=== PATIENT | male | born 1945 | race Caucasian/White ===

== ENCOUNTER 2018-04-18 14:50 | Inpatient (IN) | payer OTHER ==
[2018-04-18] MEDS ORDERED: IOPAMIDOL (ISOVUE 370) 100 ML BTL IV ONE (14:58)
--- NOTE | 2018-04-18 15:00 | EDPHY ---
H & P Time Seen by Provider: 04/18/18 14:50 HPI/ROS: CHIEF COMPLAINT: Altered mental status HISTORY OF PRESENT ILLNESS: History by EMS as the patient is non verbal on arrival. Apparently he fell hiking and EMS was called to the scene. According to the library media assistant he had been splinted with a possible left arm injury and was initially alert and oriented x4. EN route he became only oriented times name and the came emergent, he was trauma activation on arrival for a fall with altered mental status. Further history and review of systems unavailable as the patient is not answering questions on arrival. Says his name but no other words. PAST MEDICAL HISTORY: Unavailable on arrival Social history: Unavailable on arrival According to court bailiff or sheriff at 1500 the woman who was hiking with him was planning to drive to the hospital but isn't here yet. No phone number available to contact her. T 36.4 General Appearance: Alert and eyes open spontaneously but only says his name. Eyes: No scleral icterus. Pupils equal and reactive. ENT, Mouth: Normal mucous membranes. No tongue laceration or abrasion. Respiratory: Normal respiratory effort, breath sounds equal, lungs are clear to auscultation. Cardiovascular: Regular rate and rhythm. Gastrointestinal: Abdomen is soft and non tender. Neurological: Limited movement of left upper extremity, can't hold his left leg off the bed. Can say his name but will not answer any other questions. He will hold his right leg off the bed if asked. Has difficulty forming words. Skin: No laceration. Musculoskeletal: No lower extremity deformity or spinal deformity palpated. Good movement of the right arm, decreased motion of the left shoulder with proximal humerus tenderness. Does have a preserved radial pulse in the left wrist. No spinal tenderness. Psychiatric: Unable, not able to cooperate with exam. Emergency Department course/MDM: Patient is made a stroke alert. Trauma surgeon in room, saw the patient on arrival. 1510: Initial creatinine 1.3 and glucose normal, CT and directly to CT angiography for stroke evaluation as last known normal is unknown at this time. Suspicion for stroke given profound a facial and left-sided weakness. 1516: Negative CT and CTA per Dr. Joseph, no LVO. At this point no IV Activase as we are unable to independently verify the last time he is normal as his hiking customer operations manager is not located at this time. 1530: Further history is from Sergeant Morales that the hiking partner is Vida at [phone] and no answer at this time, she initially reported the subject lost and there was no cell phone service at the location of his fall. 1533: Patient had evaluation by [facility] and recommendation by Dr. Pimentel is no IV Activase at this time. Concern is last known normal was unknown and he has diagnosed long bone fracture upper extremity. Orthopedics consult to by admitting trauma surgeon Dr. Ramos. Downgraded to limited plus, in consultation with surgeon. 1612: Shoulder x-rays reviewed with Dr. Coleman. Vida his friend is now here in the room and she says that she last saw him normal at 10:30 a.m. This would confirm he is out of the IV Activase window if symptoms were ischemic stroke, but we also have history now from family that he has migraines and when he gets them he will become nonverbal. Admission to Trauma service with Medicine and Neurology consultations. Constitutional: Initial Vital Signs Heart Rate 65 04/18/18 14:55 Respiratory Rate 16 04/18/18 14:55 Blood Pressure 139/76 H 04/18/18 14:55 O2 Sat (%) 99 04/18/18 14:55 O2 Delivery Mode Room Air Allergies/Adverse Reactions: No Known Allergies Allergy (Unverified 04/18/18 14:53) Home Medications: Medication Instructions Recorded NK [No Known Home Meds] 04/18/18 Medical Decision Making - Diagnostics EKG Interpretation: 12-lead EKG interpreted by me; official reading is in computer system. My interpretation is sinus rhythm rate 76 with low voltage, no ischemic changes. Imaging Results: Imaging Impressions Chest X-Ray 04/18/18 14:56 Impression: 1. Fracture dislocation of the left humerus. 2. Hypoventilatory chest, with probable basilar atelectasis. Head CT 04/18/18 14:56 Impression: 1. Normal CT brain without contrast. 2. Moderate left maxillary sinusitis. 3. Recommend MRI of the brain, if there is continued clinical concern. Findings and recommendations discussed with trauma surgeon, Rachel, at 1500 hours and Emergency Department physician, Octavio Olivo at 1510 hour, 04/18/2018. Final report concurs with initial preliminary interpretation. Head CTA 04/18/18 15:01 Impression: Negative CT angiogram of the brain. Findings and recommendations discussed with Dr. Ramos at 1510 hours and Emergency Department physician, Octavio Olivo at 1515 hours, 04/18/2018. Final report concurs with initial preliminary interpretation. Neck CTA 04/18/18 15:01 Impression: 1. No evidence of carotid or vertebral flow-limiting stenosis, occlusion, dissection, or significant atherosclerotic disease. 2. Multilevel moderate to severe degenerative disk disease from C3-C4 through C6 -C7 resulting in mild to moderate central canal stenosis and bilateral neural foraminal stenosis. Consider MRI of the cervical spine if clinically indicated. 3. No acute cervical spine fracture noted. 4. Left humeral head/neck fracture. Findings and recommendations discussed with Emergency Department physician, Octavio Olivo at 1545hour, 04/18/2018. Final report concurs with initial preliminary interpretation. Measurement of carotid stenosis is based on the residual internal carotid diameter with [place] Symptomatic Carotid Endarterectomy Trial (NASCET) based stenosis levels. Shoulder X-Ray 04/18/18 15:17 Impression: Fracture dislocation of the proximal left humerus, with the articular surface of the humerus dislocated anteriorly. Imaging: Discussed imaging studies w/ system software programmer Radiologist Consult/Admit Bed Type: [place] [id number], [facility] 1545 Critical Care Time: Critical care time spent by me, Dr. Olivo, exclusively with the care of this patient was 40 minutes, exclusive of PA or GROUNDMAN time and exclusive of separate procedures. The organ system at risk was neurologic and I ordered multiple diagnostics and consultation with [facility] and are neurologist and hospitalist and trauma surgeon, to stabilize the patient and prevent worsening of the patient's condition. - Data Points Laboratory Results: Laboratory Results 04/18/18 14:52 04/18/18 14:52 04/18/18 04/18/18 04/18/18 15:00 14:59 14:59 WBC RBC Hgb POC Hgb 15.6 gm/dL gm/dL (13.7-17.5) Hct POC Hct 46 % % (40-51) MCV MCH MCHC RDW Plt Count MPV Neut % (Auto) Lymph % (Auto) [place] % (Auto) Eos % (Auto) Baso % (Auto) Nucleat RBC Rel Count Absolute Neuts (auto) Absolute Lymphs (auto) Absolute Monos (auto) Absolute Eos (auto) Absolute Basos (auto) Absolute Nucleated RBC Immature Gran % Immature Gran # PT INR APTT POC Sodium 142 mEq/L mEq/L (135-145) Sodium POC Potassium 4.0 mEq/L mEq/L (3.3-5.0) Potassium POC Chloride 106 mEq/L mEq/L (97-110) Chloride Carbon Dioxide Anion Gap POC BUN 16 mg/dL mg/dL (7-23) BUN Creatinine POC Creatinine 1.3 mg/dL mg/dL (0.7-1.3) Estimated GFR Glucose POC Glucose 97 mg/dL mg/dL (70-100) Calcium Creatine Kinase 177 IU/L IU/L (0-224) POC Troponin I 0.01 ng/mL ng/mL (0.00-0.08) 04/18/18 04/18/18 04/18/18 14:52 14:52 14:52 WBC 14.15 10^3/uL H 10^3/uL (3.80-9.50) RBC 4.80 10^6/uL 10^6/uL (4.40-6.38) Hgb 15.5 g/dL g/dL (13.7-17.5) POC Hgb Hct 44.3 % % (40.0-51.0) POC Hct MCV 92.3 fL fL (81.5-99.8) MCH 32.3 pg pg (27.9-34.1) MCHC 35.0 g/dL g/dL (32.4-36.7) RDW 12.1 % % (11.5-15.2) Plt Count 153 10^3/uL 10^3/uL (150-400) MPV 9.5 fL fL (8.7-11.7) Neut % (Auto) 83.5 % H % (39.3-74.2) Lymph % (Auto) 8.4 % L % (15.0-45.0) [place] % (Auto) 6.6 % % (4.5-13.0) Eos % (Auto) 0.8 % % (0.6-7.6) Baso % (Auto) 0.3 % % (0.3-1.7) Nucleat RBC Rel Count 0.0 % % (0.0-0.2) Absolute Neuts (auto) 11.82 10^3/uL H 10^3/uL (1.70-6.50) Absolute Lymphs (auto) 1.19 10^3/uL 10^3/uL (1.00-3.00) Absolute Monos (auto) 0.94 10^3/uL H 10^3/uL (0.30-0.80) Absolute Eos (auto) 0.11 10^3/uL 10^3/uL (0.03-0.40) Absolute Basos (auto) 0.04 10^3/uL 10^3/uL (0.02-0.10) Absolute Nucleated RBC 0.00 10^3/uL 10^3/uL (0-0.01) Immature Gran % 0.4 % % (0.0-1.1) Immature Gran # 0.05 10^3/uL 10^3/uL (0.00-0.10) PT 13.5 SEC SEC (12.0-15.0) INR 1.01 (0.83-1.16) APTT 26.6 SEC SEC (23.0-38.0) POC Sodium Sodium 139 mEq/L mEq/L (135-145) POC Potassium Potassium 4.2 mEq/L mEq/L (3.3-5.0) POC Chloride Chloride 106 mEq/L mEq/L (97-110) Carbon Dioxide 24 mEq/l mEq/l (22-31) Anion Gap 9 mEq/L mEq/L (8-16) POC BUN BUN 18 mg/dL mg/dL (7-23) Creatinine 1.3 mg/dL mg/dL (0.7-1.3) POC Creatinine Estimated GFR 54 Glucose 95 mg/dL mg/dL (70-100) POC Glucose Calcium 9.4 mg/dL mg/dL (8.5-10.4) Creatine Kinase POC Troponin I Medications Given: Aspirin (Aspirin Rectal) 300 mg MN DAILY ASHUTOSH Stop: 10/15/18 18:14 Last Admin: 04/18/18 18:32 Dose: 300 mg Hydromorphone HCl (Dilaudid) 0.2 - 0.4 mg IVP Q4HRS PRN PRN Reason: Pain, Severe Unable to Take PO Stop: 04/28/18 19:20 Last Admin: 04/18/18 19:48 Dose: 0.4 mg Point of Care Test Results: Chemistry 04/18/18 04/18/18 14:59 14:59 POC Sodium 142 mEq/L mEq/L (135-145) POC Potassium 4.0 mEq/L mEq/L (3.3-5.0) POC Chloride 106 mEq/L mEq/L (97-110) POC BUN 16 mg/dL mg/dL (7-23) POC Creatinine 1.3 mg/dL mg/dL (0.7-1.3) POC Glucose 97 mg/dL mg/dL (70-100) POC Troponin I 0.01 ng/mL ng/mL (0.00-0.08) ISTAT H&H 04/18/18 14:59 POC Hgb 15.6 gm/dL gm/dL (13.7-17.5) POC Hct 46 % % (40-51) Departure - Departure Disposition: [facility] Inpatient Acute Clinical Impression: Aphasia, fracture dislocation humerus left Fracture of humeral head, left, closed Qualifiers: Encounter type: initial encounter Qualified Code(s): S42.292A - Other displaced fracture of upper end of left humerus, initial encounter for closed fracture Condition: Serious
[2018-04-18 15:08] LABS: PLATELET COUNT 153 10^3/uL (150-400)
[2018-04-18 15:15] LABS: INR 1.01 (0.83-1.16); PROTIME(PATIENT) 13.5 SEC (12.0-15.0)
[2018-04-18] MEDS ORDERED: NALOXONE HCL 0.4 MG/ML INJ IVP PRN (15:33)
--- NOTE | 2018-04-18 15:34 | CPEKG ---
Test Reason : OPEN Blood Pressure : / mmHG Vent. Rate : 076 BPM Atrial Rate : 076 BPM P-R Int : 149 ms QRS Dur : 073 ms QT Int : 371 ms P-R-T Axes : 043 002 053 degrees QTc Int : 418 ms Sinus rhythm Low voltage, precordial leads Confirmed by Octavio Olivo ([id number]) on 04/18/2018 3:34:04 PM Referred By: Confirmed By:Octavio Olivo
--- NOTE | 2018-04-18 15:40 | PDGENHP ---
History and Physical - Chief Complaint fall, L arm pain, aphasia - History of Present Illness 73yo M who was brought in by ambulance after sustaining a fall. Per report, the patient was hiking with a efficiency miner when he fell abruptly. The efficiency miner attempted to find help but ended up getting lost but was eventually able to contact EMS. On their arrival, the patient was c/o L arm pain and the extremity was successfully splinted. [facility] arrived for transport and upon their arrival, the patient began to be less conversive going from holding a normal conversation to being able to tell his name only and slightly neglecting his L side. In addition, the patient was incontinent of both urine and stool. On arrival here, he is able to tell me his name but is otherwise aphasic and non- communicative. He is protecting his airway and breathing appropriately, he has normal pulses in the carotid and peripheral distributions. History Information - Allergies/Home Medication List Allergies/Adverse Reactions: No Known Allergies Allergy (Unverified 04/18/18 14:53) Home Medications: NK [No Known Home Meds] 04/18/18 [Last Taken Unknown] I have personally reviewed and updated: medical history, social history, surgical history Past Medical History: unobtainable - Surgical History Additional surgical history: has large sternonoty scar, no other scars apparent. - Family History Additional family history: unobtainable. - Social History Smoking Status: Unknown if ever smoked Alcohol Use: Other (unobtainable) Drug Use: Other (unobtainable) Review of Systems Review of Systems: unobtainable Physical Exam Physical Exam: Temp Pulse Resp BP Pulse Ox 65 16 132/68 H 99 04/18/18 14:55 04/18/18 14:55 04/18/18 15:02 04/18/18 14:55 Constitutional: no apparent distress, uncomfortable Eyes: PERRL, EOMI (neglecting L side, will look to painful stimuli), No icteric sclera, No scleral injection Ears, Nose, Mouth, Throat: moist mucous membranes, hearing normal, ears appear normal, no oral mucosal ulcers, No oral ulcer Cardiovascular: regular rate and rhythym, no murmur, rub, or gallop Peripheral Pulses: 2+: carotid (R), carotid (L), femoral (R), femoral (L), dorsalis-pedis (R), dorsalis-pedis (L) Respiratory: no respiratory distress, no rales or rhonchi Gastrointestinal: normoactive bowel sounds, soft, non-tender abdomen, no palpable masses Skin: warm, normal color, no rashes or abrasions Musculoskeletal: full muscle strength, normal joint ROM (with exception to LUE which is painful and grinds to movement ) Neurologic: other (largely aphasic, able to tell name), No facial droop Psychiatric: No interacting appropriately Lymph, Heme, Immunologic: no cervical LAD, no supraclavicular LAD Lab Data & Imaging Review 04/18/18 14:52 04/18/18 14:52 WBC 14.15 10^3/uL (3.80-9.50) H 04/18/18 14:52 RBC 4.80 10^6/uL (4.40-6.38) 04/18/18 14:52 Hgb 15.5 g/dL (13.7-17.5) 04/18/18 14:52 POC Hgb 15.6 gm/dL (13.7-17.5) 04/18/18 14:59 Hct 44.3 % (40.0-51.0) 04/18/18 14:52 POC Hct 46 % (40-51) 04/18/18 14:59 MCV 92.3 fL (81.5-99.8) 04/18/18 14:52 MCH 32.3 pg (27.9-34.1) 04/18/18 14:52 MCHC 35.0 g/dL (32.4-36.7) 04/18/18 14:52 RDW 12.1 % (11.5-15.2) 04/18/18 14:52 Plt Count 153 10^3/uL (150-400) 04/18/18 14:52 MPV 9.5 fL (8.7-11.7) 04/18/18 14:52 Neut % (Auto) 83.5 % (39.3-74.2) H 04/18/18 14:52 Lymph % (Auto) 8.4 % (15.0-45.0) L 04/18/18 14:52 [place]y % (Auto) 6.6 % (4.5-13.0) 04/18/18 14:52 Eos % (Auto) 0.8 % (0.6-7.6) 04/18/18 14:52 Baso % (Auto) 0.3 % (0.3-1.7) 04/18/18 14:52 Nucleat RBC Rel Count 0.0 % (0.0-0.2) 04/18/18 14:52 Absolute Neuts (auto) 11.82 10^3/uL (1.70-6.50) H 04/18/18 14:52 Absolute Lymphs (auto) 1.19 10^3/uL (1.00-3.00) 04/18/18 14:52 Absolute Monos (auto) 0.94 10^3/uL (0.30-0.80) H 04/18/18 14:52 Absolute Eos (auto) 0.11 10^3/uL (0.03-0.40) 04/18/18 14:52 Absolute Basos (auto) 0.04 10^3/uL (0.02-0.10) 04/18/18 14:52 Absolute Nucleated RBC 0.00 10^3/uL (0-0.01) 04/18/18 14:52 Immature Gran % 0.4 % (0.0-1.1) 04/18/18 14:52 Immature Gran # 0.05 10^3/uL (0.00-0.10) 04/18/18 14:52 PT 13.5 SEC (12.0-15.0) 04/18/18 14:52 INR 1.01 (0.83-1.16) 04/18/18 14:52 APTT 26.6 SEC (23.0-38.0) 04/18/18 14:52 POC Sodium 142 mEq/L (135-145) 04/18/18 14:59 Sodium 139 mEq/L (135-145) 04/18/18 14:52 POC Potassium 4.0 mEq/L (3.3-5.0) 04/18/18 14:59 Potassium 4.2 mEq/L (3.3-5.0) 04/18/18 14:52 POC Chloride 106 mEq/L (97-110) 04/18/18 14:59 Chloride 106 mEq/L (97-110) 04/18/18 14:52 Carbon Dioxide 24 mEq/l (22-31) 04/18/18 14:52 Anion Gap 9 mEq/L (8-16) 04/18/18 14:52 POC BUN 16 mg/dL (7-23) 04/18/18 14:59 BUN 18 mg/dL (7-23) 04/18/18 14:52 Creatinine 1.3 mg/dL (0.7-1.3) 04/18/18 14:52 POC Creatinine 1.3 mg/dL (0.7-1.3) 04/18/18 14:59 Estimated GFR 54 04/18/18 14:52 Glucose 95 mg/dL (70-100) 04/18/18 14:52 POC Glucose 97 mg/dL (70-100) 04/18/18 14:59 Calcium 9.4 mg/dL (8.5-10.4) 04/18/18 14:52 POC Troponin I 0.01 ng/mL (0.00-0.08) 04/18/18 14:59 Visualized and Interpreted imaging results: Yes Interpretation: CT Head: no acute trauma. CTA Head: no bleed. CTA Neck: no abnormalities Assessment & Plan Assessment: 73yo M s/p fall, aphasic likely 2/2 CVA Plan: Given the unknown nature of the patients injuries will admit him to the trauma service given his LUE fracture. Neurology has been contacted and given the unknown nature of when he fell as well as his long bone Fx tPA has been advocated against. Will have medicine, neurology and orthopedics consultations.
[2018-04-18 15:52] LABS: CREATINE KINASE 177 IU/L (0-224)
--- NOTE | 2018-04-18 17:03 | GCON ---
DATE OF CONSULTATION: 04/18/2018 CHIEF COMPLAINT: Left proximal humeral fracture dislocation. HISTORY OF PRESENT ILLNESS: This 73-year-old male was brought by ambulance after sustaining a fall. Per the report, he was hiking with a director clinical operations when he fell abruptly. The director clinical operations was unable to g et him off the ground. EMS was called. On arrival, he complained of left arm pain, but was otherwis e aphasic and noncommunicative. His director clinical operations was unable to provide much history. PAST MEDICAL HISTORY: Not known. HOME MEDICATIONS: Not known. ALLERGIES: No known drug allergies. PAST SURGICAL HISTORY: He has a significant scar on his chest. FAMILY HISTORY: Unobtainable. SOCIAL HISTORY: Not known. REVIEW OF SYSTEMS: Unobtainable. PHYSICAL EXAM: GENERAL: He does not appear in any acute distress. He is unable to answer questions , other than with yes or no. His eyes do track, and they are reactive. His face appears atraumatic. NECK: Supple. ENT: His mouth shows moist mucous membranes. He has 2+ peripheral pulses. RESPIR ATORY: Good respiratory effort. GI: Soft. EXTREMITIES: His left upper extremity has swelling abo ut the shoulder. This is tender. Any attempt with range of motion, this is painful. His elbow is r eally nontender to palpation. I can range his elbow without pain. His wrist and hand are nontender. He has difficulty moving his left upper extremity in any capacity. The right upper extremity, he i s able to lift this and squeeze. He does not appear to have any tenderness. He has good range of mo tion. This appears atraumatic. His legs, he is able to move his right leg pretty well with good str ength and no areas of concern for crepitus or tenderness with palpation. Good range of motion. His left lower extremity is weak, but he is able to move it. He has a hard time lifting against resistan ce or dorsiflexing or plantar flexing his foot, or extending his knee. I am unable to get a sensory exam. RADIOGRAPHS: Radiographs of his shoulder reveal a fracture dislocation, with complete dislocation of the humeral head and some comminution of his left proximal humerus. PLAN: He is being admitted to the hospital by the trauma service with consultations from Medicine an d Neurology. He will need to be worked up further for a stroke and treated for this. Once he is mor e stable medically, he will require a left shoulder hemiarthroplasty given the severity of the fractu re and the loss of blood supply to the head. When he is more medically stable, we will make surgical arrangements for this. /[id number]/MODL
--- NOTE | 2018-04-18 17:28 | GCON ---
NEUROLOGY CONSULT REFERRING PHYSICIAN: Octavio Olivo MD CHIEF COMPLAINT: Aphasia. HISTORY OF PRESENT ILLNESS: The patient is a very pleasant 73-year-old gentleman whom we obtained collateral history from Nursing, who spoke to his sibling. Apparently, he has a longstanding history of migraines in which he appears like he is having "a stroke and can't talk." In any case, the patient was hiking with a friend today and apparently fell resulting in a break of his left upper extremity in the proximal left humerus. The patient had a head CT which was unremarkable. He had angio of the head and neck without any acute intravascular thrombosis or dissection. When he was evaluated in the ED, he was noted to have aphasia. Therefore, a Stroke Alert was called and he was seen by Telemedicine, who did not recommend tPA. Admission for further workup was initiated and Trauma and Orthopedics apparently have evaluated him. REVIEW OF SYSTEMS: Cannot be performed due to the patient's aphasia. For past medical history, social history, family history, allergies, home medications, please see Dr. Ramos's H and P. PHYSICAL EXAM: VITAL SIGNS: Blood pressure is 130/91, respiration 16, heart rate is 82, temperature 36.9. GENERALLY: Patient is awake and alert. He is pleasant and laughing intermittently at jokes. HIGHER MENTAL FUNCTION: The patient can follow commands 4 out of 5, but has significant expressive aphasia and is unable to name 0 out of 5 currently. On motor exam he has equal core cutter and reamer strength, but decreased spontaneous movement in the left upper extremity due to the fracture apparently. Lower extremities have full movement as well. No obvious focal weakness outside of decrease activation secondary to pain in the left upper extremity. IMPRESSION/PLAN: 1. Aphasia (expressive greater than receptive) 2. Status post fall with left humerus fracture. Apparently, this patient has a longstanding history of migraine headaches that may be hemiplegic or aphasic based on collateral history obtained through the emergency department nursing from his sibling. Hopefully this is the case rather than a stroke. Going forward, Pharmacy will be looking into his home medications. Specifically, we want to know if he is on any oral anticoagulation. If not, then I would recommend rectal aspirin if okay with Surgery/Trauma. Once he can take p.o., we can switch him to oral aspirin 325 mg daily. He will need Physical Therapy, Occupational Therapy and Speech evaluations. I have ordered an MRI brain without contrast to assess for any acute infarct. This can be done when he is less agitated, either today or tomorrow, so he can stay still for the study. Otherwise, no further recommendations now. We will follow up on the imaging results and make recommendations accordingly. We appreciate the consultation. Please do not hesitate to call if there are any questions or changes in neurologic status with this very pleasant patient. Seventy total minutes floor time today in reviewing records, imaging, labs, and coordination of care. /[id number]/MODL MTDD
--- NOTE | 2018-04-18 17:43 | PDHOSCONS ---
History and Physical - Chief Complaint fall, aphasia - History of Present Illness 73yo M who was brought in by ambulance after sustaining a fall. Per report, the patient was hiking with a lumber mover when he fell abruptly. The lumber mover attempted to find help but ended up getting lost but was eventually able to contact EMS. On their arrival, the patient was c/o L arm pain and the extremity was successfully splinted. [facility] arrived for transport and upon their arrival, the patient began to be less conversive going from holding a normal conversation to being able to tell his name only and slightly neglecting his L side. In addition, the patient was incontinent of both urine and stool. Imaging to include CTA Brain, Neck, and CT brain are unremarkable He continues to be incontinent to urine and stool ROS: unable to obtain Past Medical History: unobtainable - Surgical History unobtainable - Family History Additional family history: unobtainable. Soc Hx: unobtainable History Information - Allergies/Home Medication List Allergies/Adverse Reactions: No Known Allergies Allergy (Unverified 04/18/18 14:53) Home Medications: NK [No Known Home Meds] 04/18/18 [Last Taken Unknown] I have personally reviewed and updated: family history Past Medical History: unobtainable - Surgical History Additional surgical history: has large sternonoty scar, no other scars apparent. - Family History Additional family history: unobtainable. - Social History Smoking Status: Unknown if ever smoked Alcohol Use: Other (unobtainable) Drug Use: Other (unobtainable) Review of Systems Review of Systems: Physical Exam Physical Exam: Temp Pulse Resp BP Pulse Ox 36.9 C 75 20 140/68 H 94 04/18/18 16:51 04/18/18 16:51 04/18/18 16:51 04/18/18 16:51 04/18/18 16:51 Constitutional: no apparent distress Eyes: PERRL Ears, Nose, Mouth, Throat: moist mucous membranes Cardiovascular: regular rate and rhythym, No edema Respiratory: no respiratory distress, no rales or rhonchi, clear to auscultation Gastrointestinal: normoactive bowel sounds, No guarding, No rebound, No distension Skin: warm Neurologic: No AAOx3, No facial droop Psychiatric: encephalopathic, No interacting appropriately Lymph, Heme, Immunologic: No petechiae Lab Data & Imaging Review 04/18/18 14:52 04/18/18 14:52 WBC 14.15 10^3/uL (3.80-9.50) H 04/18/18 14:52 RBC 4.80 10^6/uL (4.40-6.38) 04/18/18 14:52 Hgb 15.5 g/dL (13.7-17.5) 04/18/18 14:52 POC Hgb 15.6 gm/dL (13.7-17.5) 04/18/18 14:59 Hct 44.3 % (40.0-51.0) 04/18/18 14:52 POC Hct 46 % (40-51) 04/18/18 14:59 MCV 92.3 fL (81.5-99.8) 04/18/18 14:52 MCH 32.3 pg (27.9-34.1) 04/18/18 14:52 MCHC 35.0 g/dL (32.4-36.7) 04/18/18 14:52 RDW 12.1 % (11.5-15.2) 04/18/18 14:52 Plt Count 153 10^3/uL (150-400) 04/18/18 14:52 MPV 9.5 fL (8.7-11.7) 04/18/18 14:52 Neut % (Auto) 83.5 % (39.3-74.2) H 04/18/18 14:52 Lymph % (Auto) 8.4 % (15.0-45.0) L 04/18/18 14:52 [place] % (Auto) 6.6 % (4.5-13.0) 04/18/18 14:52 Eos % (Auto) 0.8 % (0.6-7.6) 04/18/18 14:52 Baso % (Auto) 0.3 % (0.3-1.7) 04/18/18 14:52 Nucleat RBC Rel Count 0.0 % (0.0-0.2) 04/18/18 14:52 Absolute Neuts (auto) 11.82 10^3/uL (1.70-6.50) H 04/18/18 14:52 Absolute Lymphs (auto) 1.19 10^3/uL (1.00-3.00) 04/18/18 14:52 Absolute Monos (auto) 0.94 10^3/uL (0.30-0.80) H 04/18/18 14:52 Absolute Eos (auto) 0.11 10^3/uL (0.03-0.40) 04/18/18 14:52 Absolute Basos (auto) 0.04 10^3/uL (0.02-0.10) 04/18/18 14:52 Absolute Nucleated RBC 0.00 10^3/uL (0-0.01) 04/18/18 14:52 Immature Gran % 0.4 % (0.0-1.1) 04/18/18 14:52 Immature Gran # 0.05 10^3/uL (0.00-0.10) 04/18/18 14:52 PT 13.5 SEC (12.0-15.0) 04/18/18 14:52 INR 1.01 (0.83-1.16) 04/18/18 14:52 APTT 26.6 SEC (23.0-38.0) 04/18/18 14:52 POC Sodium 142 mEq/L (135-145) 04/18/18 14:59 Sodium 139 mEq/L (135-145) 04/18/18 14:52 POC Potassium 4.0 mEq/L (3.3-5.0) 04/18/18 14:59 Potassium 4.2 mEq/L (3.3-5.0) 04/18/18 14:52 POC Chloride 106 mEq/L (97-110) 04/18/18 14:59 Chloride 106 mEq/L (97-110) 04/18/18 14:52 Carbon Dioxide 24 mEq/l (22-31) 04/18/18 14:52 Anion Gap 9 mEq/L (8-16) 04/18/18 14:52 POC BUN 16 mg/dL (7-23) 04/18/18 14:59 BUN 18 mg/dL (7-23) 04/18/18 14:52 Creatinine 1.3 mg/dL (0.7-1.3) 04/18/18 14:52 POC Creatinine 1.3 mg/dL (0.7-1.3) 04/18/18 14:59 Estimated GFR 54 09/07/18 14:52 Glucose 95 mg/dL (70-100) 04/18/18 14:52 POC Glucose 97 mg/dL (70-100) 04/18/18 14:59 Calcium 9.4 mg/dL (8.5-10.4) 04/18/18 14:52 Creatine Kinase 177 IU/L (0-224) 04/18/18 15:00 POC Troponin I 0.01 ng/mL (0.00-0.08) 04/18/18 14:59 Assessment & Plan Assessment: #Aphasia (Acute) -Likely due to CVA -Neuro following -Need for Aspirin vs other agent per Neuro -MRI in am. -check risk factors -Tele -TTE -NPO -speech/pt/ot -permissive HTN #Fracture of humeral head, left, closed (Acute) -mgmt per ortho #Leukocytosis, likely reactive #s/p fall/ trauma, possible syncope -check tte, telemetry Mgmt per above no known chronic medical problems no known chronic meds further reccs pending w/u and clinical course Thank you for this consultation
[2018-04-18] MEDS: ASPIRIN RECTAL 300 MG SUPP PR SCH (18:32)
[2018-04-18] MEDS: HYDROmorphONE/DILAUDID 1 MG/ML INJ IVP PRN (19:48)
[2018-04-19] MEDS: HYDROmorphONE/DILAUDID 1 MG/ML INJ IVP PRN ×2 (01:09→11:37)
--- NOTE | 2018-04-19 09:13 | TRAUMAPNT ---
Trauma Tertiary Progress Note Assessment/Plan: urinary retention overnight. some confusion last fernando - improved throughout am. straight cath for urine retention. currently without complaints. denies [place]. denies visual changes. remembers fall while hiking. no cp or sob. no abd c/o. left arm pain controlled. avss. alert to name, place, situation. PERRLA. EOMI. neck nontender. heart reg. lungs clear. abd nontender. LUE sling in place. MAEW. fall / syncope / ?migraine. Humerus fx. urine retention. apprec IM/neuro assessments. for MRI today. no other acute trauma issues identified. Trauma to sign off - d/w hospitalist service. call with further questions. Objective: Vital Signs Temp Pulse Resp BP Pulse Ox 36.8 C 80 18 101/59 L 97 04/19/18 07:40 04/19/18 07:40 04/19/18 07:40 04/19/18 07:40 04/19/18 07:40 04/18/18 04/19/18 04/20/18 05:59 05:59 05:59 Intake Total 120 Output Total 400 Balance -280 PT 13.5 SEC (12.0-15.0) 04/18/18 14:52 INR 1.01 (0.83-1.16) 04/18/18 14:52
--- NOTE | 2018-04-19 09:49 | ASMTCMCOM ---
CM Note CM Note Notes: Pt admitted to hospital after a fall while hiking. He was with a friend when fell suddenly. 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 Per H&P, pt lives alone but independent in ADLs, has a brother and a son. PT/OT ordered, CM w/f and assess for dc plan. DC Plan: TBD Date Signed: 04/19/2018 09:48 AM Electronically Signed By:Jayleen Candelario RN
--- NOTE | 2018-04-19 10:20 | SOAPPROG ---
[facility] Progress Note Assessment/Plan: Assessment: Left proximal humerus 4 part fx dislocation axillary nerve palsy Plan: plan for OR tomorrow with Dr. Dunn for ORIF versus reverse total shoulder able to get exam today no sensory or motor function of axillary nerve present decreased sensation in hand in radial, ulnar and median distributions, likely secondary to CVA full 5/5 strength in medial/ulnar and radial distribution in left arm and hand, 4/5 elbow flexion non wt bearing LUE may mobilize 04/19/18 10:17 Subjective: pain in left shoulder Objective: Vital Signs Temp Pulse Resp BP Pulse Ox 36.8 C 80 18 101/59 L 97 04/19/18 07:40 04/19/18 07:40 04/19/18 07:40 04/19/18 07:40 04/19/18 07:40 04/18/18 04/19/18 04/20/18 05:59 05:59 05:59 Intake Total 120 Output Total 400 Balance -280 PT 13.5 SEC (12.0-15.0) 04/18/18 14:52 INR 1.01 (0.83-1.16) 04/18/18 14:52 numb in axillary distribution 0/5 shoulder abduction strength 4/5 elbow flexion 5/5 wrist/finger flex/ext/abd/add and oppostion ICD10 Worksheet Patient Problems: Problems Problem Status Onset Aphasia Acute Fracture of humeral head, left, closed Acute
--- NOTE | 2018-04-19 11:23 | GCON ---
CRITICAL CARE CONSULTATION HISTORY OF PRESENT ILLNESS: This patient is a 73-year-old male, with a history of complex migraines that manifest as expressive aphasia and some weaknesses, who was in his usual state of health and was hiking yesterday, got from his hiking partner, who eventually found him, and he was found down. At that time, he did have an expressive aphasia. [facility] he was found to have a complicated humerus fracture. A stroke alert was called, but his he ad CT was negative and he has been evaluated by Neurology. He also has a history of aortic valve rep lacement, but I believe this is with a non-mechanical valve, as he is not currently anticoagulated. Today, he was unable to recall too many details. He has had some confusion, though it is substantial ly better, apparently, than when he came. REVIEW OF SYSTEMS: Otherwise negative. PAST MEDICAL HISTORY: 1. Migraines as described above. 2. Remote history of atrial fibrillation. 3. Coronary artery disease. 4. Hyperlipidemia. 5. Possible hypertension. PAST SURGICAL HISTORY: 1. Aortic valve replacement. 2. Back surgery. 3. Cardioversion in 2012. SOCIAL HISTORY: He is a nonsmoker. No significant alcohol or IV drug use. FAMILY HISTORY: Noncontributory at this time. MEDICATIONS: 1. The aspirin which was given last evening. 2. Dilaudid p.r.n. 3. Narcan. PHYSICAL EXAMINATION: VITAL SIGNS: He was afebrile. His blood pressure is 110/66, heart rate 82, r espirations 18, oxygen saturation 98% on 3L. GENERAL: He was awake, but not oriented. He was in no apparent distress, spoke in full sentences, w ithout using accessory muscles for breathing. HEENT: Pupils equally round and reactive to light. Nonicteric and noninjected. Mucous membranes mo ist, without erythema or exudate. NECK: Supple, without adenopathy or jugular vein distention. RESPIRATORY: Breath sounds were clear to auscultation bilaterally, without wheezes, rubs, or rales. HEART: Regular rate and rhythm, without obvious murmur. CHEST WALL: Well-healed old incision, without evidence of breakdown. ABDOMEN: Soft, nontender, nondistended, without hepatosplenomegaly. EXTREMITIES: No clubbing, cyanosis, or edema. NEUROLOGICAL: As best I could tell, he was nonfocal, including cranial nerves. His left arm was in a sling, so I was not able to test that very well. SKIN: Otherwise warm and dry. OBJECTIVE DATA: CT scan as described above. He had a white count of 14 on arrival, but the rest of his labs were very unremarkable, including LFTs and kidney function. His LDL was 101, HDL 38. ASSESSMENT AND PLAN: 1. What sounds to be a syncopal episode that may have been related to his migraines. I see no evide nce of seizure activity or current stroke, though Neurology is also following at this time. I believ e an MRI is pending currently. He does have an outpatient neurologist. 2. Humerus fracture is being evaluated by Orthopedics. He is likely to have this repaired tomorrow. He appears to be hemodynamically stable. /[id number]/MODL
--- NOTE | 2018-04-19 11:33 | NEUROPROG ---
Assessment: 1. History of migraines with aphasia and scintillating scotoma 2. Status post fall and left humerus fracture 3. Acute migraine with aura (with aphasia), resolving 35 total minutes floor time; reviewing interim history. The patient now recalls that he had a mechanical fall from a boulder while hiking due to a rock dislodging. He then developed a typical migraine afterwards. He endorses that he does have recurrent migraine with aura with scintillating scotoma and difficulty speaking symptoms. He had these same symptoms yesterday with head pain which is now all resolving. Today his expressive aphasia has resolved. Therefore, this was likely a provoked migraine from the physical trauma. We will go ahead and complete the MRI brain to exclude a cerebral infarct prior to orthopedic surgery tomorrow. If there is any acute infarct, please call the neurology service for further recommendations. If there is no acute infarct or any other concerning findings, then there would be no contraindication from my standpoint to proceed with surgery. Once surgery is complete and he has been cleared by orthopedic surgery, he should restart a baby aspirin for vascular prophylaxis in the setting of his age and history of migraine with aura. The patient is agreeable. We will continue to follow up p.r.n. Please do not hesitate to call for any questions or changes in neurologic status with this very pleasant patient. In addition, I would be happy to see him as an outpatient if he would like further treatment for his migraines. He can call our office at [phone] Subjective: Headache and aphasia have resolved Objective: Vital Signs Temp Pulse Resp BP Pulse Ox 36.8 C 82 18 110/66 98 04/19/18 07:40 04/19/18 10:00 04/19/18 10:00 04/19/18 10:00 04/19/18 10:00 04/18/18 04/19/18 04/20/18 05:59 05:59 05:59 Intake Total 120 Output Total 400 Balance -280 PT 13.5 SEC (12.0-15.0) 04/18/18 14:52 INR 1.01 (0.83-1.16) 04/18/18 14:52 Awake and alert Names 5/5 Repeats 5/5 Follows commands 5/5 Allergies/Adverse Reactions: No Known Allergies Allergy (Unverified 04/18/18 14:53)
[2018-04-19] MEDS: ASPIRIN RECTAL 300 MG SUPP PR SCH (11:56)
--- NOTE | 2018-04-19 13:18 | ECHO ---
[email or web address] [address] Main: [phone] Fax: Transthoracic Echocardiogram Name: JOSHUA JARVIS MR#: [id number] Study Date: 04/19/2018 Study Time: 10:33 AM Date of : 1945 Age: 73 year(s) Height: 177.8 cm (70 in.) Weight: 78.93 kg (174 lb.) BSA: 1.97 m2 Gender: Male Examination: Complete Echo with Agitated Saline Indication: Cerebrovascular: prior CVA, Cardiac: syncope, Aortic Valve Regurgitation Image Quality: Poor Contrast: Requested by: Mike Paulino BP: 110 mmHg/66 mmHg Heart Rate: Rhythm: Indication: Cerebrovascular: prior CVA, Cardiac: syncope, Aortic Valve Regurgitation Procedure Staff Credit Control Assistant: Rodrigo Crawford RDCS Reading Physician: Samuel Fair MD Requesting Provider: Conclusions: Global hypercontractility of the left ventricle. EF is 64 %. An agitated saline study was performed and was negative for intracardiac shunting. Mild mitral valve leaflet calcification is present. The aortic valve is a bioprosthesis. Cannot assess for regional wall motion abnormalities due to poor windows. Consider transesophageal echocardiogram if clinically indicated. Measurements: Chambers Valvular Assessment AV/MV Valvular Assessment TV/PV Normal Normal Normal Name Value Range Name Value Range Name Value Range Ao Lashaun (MM): 1.9 cm (2.2 cm-3.7 AV Vmax: 2.88 m/s (1 m/s-1.7 cm) m/s) IVSd (2D): 1.0 cm (0.6 cm-1.1 AV maxP mmHg ( - ) cm) AV meanP mmHg ( - ) LVDd (2D): 3.5 cm (4.2 cm-5.9 SHASHI (VTI): 1.1 cm ( - ) cm) MV E Vmax: 0.44 m/s ( - ) LVDs (2D): 2.4 cm (2.1 cm-4 MV A Vmax: 0.55 m/s ( - ) cm) MV E/A: 0.80 ( - ) LVPWd (2D): 1.0 cm (0.6 cm-1 cm) LVOTd 2.0 cm 2.0 cm mm LVEF (2D): 64 (>=54 %) Continued Measurements: Chambers Name Value Patient: JOSHUA JARVIS Study Date: 04/19/2018 Page 1 of 2 10:33 AM LADs Lon.6 cm LA Area: 14.5 cm2 Findings: Left Ventricle: Normal size left ventricle. No LV hypertrophy. Global hypercontractility of the left ventricle. EF is 64 %. Diastolic dysfunction is present. . There is a dagger shaped waveform in the mid LV with a PG of 4 mmHg. There does not appear to be an increase with valsalva maneuver in the gradient. Most likely due to hyperdynamic LV.. Right Ventricle: Normal size right ventricle. Normal RV function. Left Atrium: The left atrium is normal in size. An agitated saline study was performed and was negative for intracardiac shunting. Right Atrium: The right atrium is normal in size. Mitral Valve: Mild mitral valve leaflet calcification is present. Trivial mitral valve regurgitation. No mitral stenosis is present. Aortic Valve: The aortic valve is a bioprosthesis. The Ao mean PG is 19 mmHg with a AV Vmax of 2.9m/s. Tricuspid Valve: The tricuspid valve is normal in appearance and function. Trivial tricuspid valve regurgitation. Pulmonic Valve: The pulmonic valve is normal in appearance and function. Aorta: The aorta is normal. Pericardium: No pericardial effusion. Exam Comments: (No Signature Object) Patient: JOSHUA JARVIS Study Date: 04/19/2018 Page 2 of 2 10:33 AM [id number]
--- NOTE | 2018-04-19 14:56 | SOAPPROG ---
SOAP Progress Note Assessment/Plan: Assessment: Plan: Subjective: discussed case with Dr Coleman. CT reviewed Plan for ORIF Proximal humerus fx tomorrow morning REverse total shoulder may be risky considering axillary nerve palsy and absence of deltoid function. Objective: Vital Signs Temp Pulse Resp BP Pulse Ox 36.8 C 61 16 120/55 L 97 04/19/18 07:40 04/19/18 14:00 04/19/18 14:00 04/19/18 14:00 04/19/18 14:00 04/18/18 04/19/18 04/20/18 05:59 05:59 05:59 Intake Total 120 Output Total 400 Balance -280 PT 13.5 SEC (12.0-15.0) 04/18/18 14:52 INR 1.01 (0.83-1.16) 04/18/18 14:52 ICD10 Worksheet Patient Problems: Problems Problem Status Onset Aphasia Acute Fracture of humeral head, left, closed Acute
[2018-04-19] MEDS ORDERED: LACTULOSE 20 GM/30 ML UDCUP PO PRN (15:55)
[2018-04-19] MEDS ORDERED: HYDROmorphONE/DILAUDID 1 MG/ML INJ IVP PRN (15:55)
[2018-04-19] MEDS ORDERED: BISACODYL 10 MG SUPP PR PRN (15:55)
[2018-04-19] MEDS ORDERED: POLYETHYLENE GLYCOL 3350 17 GM PKT PO PRN (15:55)
[2018-04-19] MEDS ORDERED: MAGNESIUM HYDROXIDE 30 ML UDCUP PO PRN (15:55)
--- NOTE | 2018-04-19 16:09 | HOSPPROG ---
Hospitalist Progress Note Assessment/Plan: Assessment: 73 yo M p/w traumatic fall resulting in L humerus fracture Plan: # Fall. Likely 2/2 complex migraine, s/p trauma eval -EKG NSR w/ Q III (personally interpreted), not thought to be syncopal # Humerus fracture. Acute, CT w/ comminuted, dislocated L prox humeral head fxr -to OR w/ Dr. Coleman in AM -RCRI of 0, conferring 0.5% perioperative risk of CV morbidity/mortality, rendering this a low CV risk patient for intermediate orthopedic risk surg, rec proceeding to OR w/o additional CV risk-stratification -rec getting brain MRI prior to surg to ensure no CVA -pain control, bowel regimen, IS # Suspected complex migraine. Chronic, w/ acute neuro symptoms requiring further w/u -d/w Dr. Minaya, we agree to get MRI to r/o CVA, so that he can safely proceed to surg -hold ASA now, will rec ASA 81mg daily post-op for CVA ppx Diet. Regular PPx. High risk, SCDs, hold pharm given surg Code. Full Dispo. ADD uncertain, pending surgical outcome of above. Subjective: mild ongoing [place], L arm pain Objective: Vital Signs Temp Pulse Resp BP Pulse Ox 36.8 C 61 16 120/55 L 97 04/19/18 07:40 04/19/18 14:00 04/19/18 14:00 04/19/18 14:00 04/19/18 14:00 04/18/18 04/19/18 04/20/18 05:59 05:59 05:59 Intake Total 120 Output Total 400 Balance -280 PT 13.5 SEC (12.0-15.0) 04/18/18 14:52 INR 1.01 (0.83-1.16) 04/18/18 14:52 - Physical Exam Constitutional: no apparent distress, appears nourished, uncomfortable, No not in pain (mild) Cardiovascular: regular rate and rhythym, no murmur, rub, or gallop, No carotid bruit Respiratory: no respiratory distress, no rales or rhonchi, clear to auscultation Gastrointestinal: normoactive bowel sounds, soft, non-tender abdomen, no palpable masses, No distension Musculoskeletal: other (LUE in sling) Neurologic: AAOx3, sensation intact bilaterally, CN II-XII Intact, other (mild thought blocking), No weakness, No facial droop Psychiatric: interacting appropriately, not anxious, not encephalopathic, thought process linear ICD10 Worksheet Patient Problems: Problems Problem Status Onset Fracture of humeral head, left, closed Acute Aphasia Acute
[2018-04-19] MEDS: HYDROmorphONE/DILAUDID 2 MG TAB PO PRN ×2 (16:16→20:32)
--- NOTE | 2018-04-19 16:38 | PDMN ---
Medical Necessity Medical necessity: MCG: GRG Neurology: pt with fall - R/O CVA, poss Migraine complex, with aphasia, L proximal humeral fx dislocation- req sgy ( ORIF) when stable anticipate > 2 MN- further eval and tx of poss CVA vs. Migraine and ORIF pending.
[2018-04-19] MEDS ORDERED: NS 1,000 ML IV SCH (17:15)
[2018-04-19] MEDS: SENNOSIDES/DOCUSATE SODIUM TAB PO SCH (20:32)
[2018-04-20] MEDS ORDERED: ROPIVACAINE HCL 20 MG/10 ML INJ EP ONE (07:34)
[2018-04-20] MEDS ORDERED: CEFAZOLIN 2 GM/DEXTROSE/100 ML BAG IV ONE (07:51)
--- NOTE | 2018-04-20 08:02 | PDANEPAE ---
ANE History of Present Illness Patient presents for L humerus ORIF ANE Past Medical History - Cardiovascular History Hx Hypertension: Yes Hx Coronary Artery / Peripheral Vascular Disease: Yes Cardiovascular History Comment: S/P open heart surgery - Pulmonary History Hx Oxygen in Use at Home: No Hx Sleep Apnea: No Sleep Apnea Screening Result - Last Documented: Negative ANE Review of Systems Review of Systems: ANE Patient History - Allergies Allergies/Adverse Reactions: No Known Allergies Allergy (Unverified 04/18/18 14:53) - Home Medications Home Medications: NK [No Known Home Meds] 04/18/18 [Last Taken Unknown] - NPO status NPO Status: no food or drink >8 hours NPO Since - Liquids (Date): 03/20/18 NPO Since - Liquids (Time): 00:00 NPO Since - Solids (Date): 03/20/18 NPO Since - Solids (Time): 00:00 - Smoking Hx Smoking Status: Unknown if ever smoked - Alcohol Use Alcohol Use: Other (unobtainable) ANE Labs/Vital Signs - Labs Result Diagrams: 04/20/18 05:20 04/20/18 05:20 - Vital Signs Blood Pressure: 108/44 Heart Rate: 60 Respiratory Rate: 12 O2 Sat (%): 99 Height: 177.8 cm Weight: 78.1 kg ANE Physical Exam - Airway Neck exam: decreased ROM Mallampati Score: Class 1 Mouth exam: poor dentition - Pulmonary Pulmonary: no respiratory distress - Cardiovascular Cardiovascular: regular rate and rhythym - ASA Status ASA Status: III ANE Anesthesia Plan Anesthesia Plan: general endotracheal anesthesia (GA, ETT, No ISB due to Left axillary N. Injury)
[2018-04-20] MEDS ORDERED: PROPOFOL 200 MG/20 ML VIAL ONE (08:05)
[2018-04-20] MEDS ORDERED: fentaNYL 100 MCG/2 ML INJ ONE ×2 (08:05→08:30)
[2018-04-20] MEDS ORDERED: SUCCINYLCHOLINE CHLORIDE 200 MG/10 ML SYR IVP ONE (08:09)
[2018-04-20] MEDS ORDERED: LIDOCAINE 2% 2 ML INJ ONE (08:09)
[2018-04-20] MEDS ORDERED: ePHEDrine SULFATE 25 MG/5 ML SYR ONE (08:18)
[2018-04-20] MEDS ORDERED: ONDANSETRON 4 MG/2 ML VIAL ONE (08:30)
[2018-04-20] MEDS ORDERED: DEXAMETHASONE 4 MG/ML VIAL ONE (08:30)
[2018-04-20] MEDS ORDERED: ROCURONIUM 50 MG/5 ML VIAL ONE (09:05)
[2018-04-20] MEDS ORDERED: ceFAZolin 2 GM/DEXTROSE 100 ML IV ONE (10:00)
[2018-04-20] MEDS ORDERED: HYDROmorphONE/DILAUDID 2 MG/ML INJ ONE (10:04)
[2018-04-20] MEDS ORDERED: SUGAMMADEX SODIUM 200 MG/2 ML VIAL IVP ONE (10:07)
[2018-04-20] MEDS ORDERED: NALOXONE HCL 0.4 MG/ML INJ IVP PRN (10:33)
[2018-04-20] MEDS ORDERED: HYDROCODONE/APAP 5/325 TAB PO PRN (10:33)
[2018-04-20] MEDS ORDERED: HYDROmorphONE/DILAUDID 1 MG/ML INJ IVP PRN (10:33)
[2018-04-20] MEDS ORDERED: ONDANSETRON 4 MG/2 ML VIAL IVP PRN (10:33)
[2018-04-20] MEDS ORDERED: LR 500 ML IV PRN (10:33)
[2018-04-20] MEDS ORDERED: fentaNYL 100 MCG/2 ML INJ IVP PRN (10:33)
--- NOTE | 2018-04-20 10:34 | POSTANESTH ---
Post Anesthetic Evaluation Cardiovascular Status: Similar to Pre-Op Cond Respiratory Status: Similar to Pre-op Cond. Level of Consciousness/Mental Status: Mildly Sleepy, Arousable Pain Control: Adequate, Prn Tx Ordered Nausea/Vomiting Control: Adequate, Prn Tx Ordered Complications Possibly Related to Anesthesia: None Noted
[2018-04-20] MEDS ORDERED: D5W 1/2 NS W/ 20 KCl/L 1,000 ML IV SCH (10:45)
--- NOTE | 2018-04-20 11:27 | GOP ---
DATE OF OPERATION: SURGEON: Meghan Dunn MD TEXTILE STYLIST: melonie Hunter. PREOPERATIVE DIAGNOSIS: 1. Left proximal humeral fracture dislocation. 2. Axillary nerve palsy. 3. Anatomic neck fracture with a comminuted greater and lesser tuberosity and comminuted subscapular is. 4. 4-part fracture variant. POSTOPERATIVE DIAGNOSIS: 1. Left proximal humeral fracture dislocation. 2. Axillary nerve palsy. Axillary nerve was palpably intact. 3. Anatomic neck fracture with a comminuted greater and lesser tuberosity and comminuted subscapular is. 4. 4-part fracture variant. PROCEDURE PERFORMED: 1. Open reduction, internal fixation of 4-part proximal humerus fracture. 2. Rotator cuff repair. 3. Subscapularis repair. 4. Biceps tenodesis. 5. Bone grafting with Norian and cancellous chips to fill bone defect. FINDINGS: ESTIMATED BLOOD LOSS: Minimal. INDICATIONS: A 73-year-old male, history of expressive aphasia with migraines. Lives in [place]. Wa s hiking up in [place], had a fall. Triaged to [facility]. Stroke alert, but negative stroke workup. X-rays show a proximal humeral fracture with the head dislocated and split anterior to the glenoid. CT scan confirms this with comminution of the lesser and greater. Examination by the on-call ER and orthopedic surgeon on-call revealed decreased sensation or lack of sensation in the posterior and lateral aspects of the deltoid. Motion was hard to assess, secondary to pain. Presumably axillary nerve palsy from a fracture dislocation of the proximal humerus. Discussion with patient with reduction, ORIF attempts, and possible reverse total shoulder. Consider ing his axillary nerve was out, deltoid presumably was not working. Recommend at least ORIF reductio n and establishing the bone stock and soft tissue cuff integrity for possible future arthroplasty int ervention. DESCRIPTION OF PROCEDURE: Patient identified in the preoperative holding area. Consent laterality a nd preoperative antibiotics were confirmed to confirmed delivered. All questions were answered. He had no sensation over the posterior lateral deltoid. It was difficult for him to move the arm, secon silas to pain. He did have an intact wrist extension, EPL, FPL, interossei and lastex operator, and good distal pulses that are equal. Patient brought into the operating room. General anesthesia. Beach chair position. 30 degree head of bed. Padded Moreno used. Left upper extremity prepped and draped in the usual fashion. Surgical t enoc-out was performed. Standard deltopectoral interval. There was hematoma medially in the deltopectoral interval. Blunt f jameson dissection around to the coracoid CA ligament cuff, which appeared palpably intact to some comm inution on the greater tuberosity, as well as the subscapularis. We tagged the cuff and the subscapu petros. There were good pieces of bone attached to it. The head was anterior to the glenoid undernea th the subscapularis. The axillary nerve was palpated in continuity, it did not feel transected. Th e head was free of the capsule. We delivered the head onto the nail and washed this out. We used a Bankart retractor on the glenoid, Fukuda retractor, and inspected the glenoid, which looked pretty go od with some cartilage grade 1-2 softening. We did a biceps tenodesis as that was interfering with the reduction. We had now a nice open sleeve of cuff tissue and subscapularis with bony attachments. We placed the head in. In valgus, there was no real bone proximally to hold it into its normal 135 valgus. We perched the inferior aspect of th e head and angled it open to about 140 degrees and filled the rest with bone chips and DBX. We place d a plate provisionally of what we thought this humerus should look like and then placed 3 guidewires to prop up the head in slight at 140 degrees of varus. Internal and external rotation views showed reasonable alignment. We were able to get the subscapularis portion intercalated between the head an d the shaft, as well as bits and pieces of the greater tuberosity underneath the plate and tied this off to the plate. We filled in the gap with Norian, as well to add some structural integrity. We pu t locking screws proximally and compressive screws distally. With internal-external rotation views, we were fairly happy with the reduction and it looked stable from internal rotation with hand at the belly and external rotation to about 20 degrees, and abduction to 90 degrees. We repaired the rotato r cuff to the plate with its bits of bone of the greater tuberosity and we repaired the subscapularis and compressed this also to the plate. The wound was copiously washed out with 500 cc of warm normal saline. 2-0 PDS for interrupted deltop ectoral incision, 3-0 Monocryl for subcutaneous closure, and surya and Dermabond glue with dressing . 10 cc of 0.2% ropivacaine were injected around the incision. IMPLANTS USED: Small frag Synthes proximal humeral locking plate. COMPLICATIONS: None. TOTAL SURGICAL TIME: 2 hours. DISPOSITION: Extubated to PACU in stable condition. /[id number]/MODL
[2018-04-20] MEDS: SENNOSIDES/DOCUSATE SODIUM TAB PO SCH ×2 (11:51→20:31)
--- NOTE | 2018-04-20 12:06 | NEUROPROG ---
Assessment: 1. History of migraines with aphasia and scintillating scotoma 2. Status post fall and left humerus fracture 3. Acute migraine with aura (with aphasia), resolving The patient is postop now from fracture repair. I did check with him and let him know his MRI brain is negative for stroke consistent with the event of aphasia being migrainous. He was pleased to hear this. Despite being sedated from anesthesia, he performed normally on language exam. No further recommendations. We will sign off and follow up as needed. Please do not hesitate to call if there are any questions or changes in neurologic status with this very pleasant patient. We will see him as an outpatient for migraine treatment. Subjective: Postop from humerus repair Objective: Vital Signs Temp Pulse Resp BP Pulse Ox 36.3 C 74 16 111/58 L 99 04/20/18 11:47 04/20/18 11:47 04/20/18 11:47 04/20/18 11:47 04/20/18 11:47 Laboratory Results 04/20/18 05:20 04/20/18 05:20 04/19/18 04/20/18 04/21/18 05:59 05:59 05:59 Intake Total 120 1850 900 Output Total 400 550 100 Balance -280 1300 800 PT 13.5 SEC (12.0-15.0) 04/18/18 14:52 INR 1.01 (0.83-1.16) 04/18/18 14:52 Patient awoke to a verbal stimulation Name 5 /5 Follows commands 5/5 Repeats 5 /5 Allergies/Adverse Reactions: No Known Allergies Allergy (Unverified 04/18/18 14:53)
[2018-04-20] MEDS ORDERED: HYDROmorphone HCL 0.5 MG/0.5 ML SYR IVP PRN (13:00)
[2018-04-20] MEDS: KETOROLAC 15 MG/1 ML SDV IVP SCH ×3 (13:01→23:58)
[2018-04-20] MEDS: ceFAZolin 2 GM/DEXTROSE 100 ML IV SCH (17:05)
--- NOTE | 2018-04-20 17:57 | HOSPPROG ---
Hospitalist Progress Note Assessment/Plan: Assessment: 73 yo M p/w traumatic fall resulting in L humerus fracture Plan: # Fall. Likely 2/2 complex migraine and neuro sequelae, s/p trauma eval -no abnl events on tele, DC tele # Humerus fracture. Acute, CT w/ comminuted, dislocated L prox humeral head fxr -POD#[address] Coleman -pain control, bowel regimen, IS -hgb 12.3, repeat in AM -d/w case mgmt, patient lives independently at baseline, PT/OT evals tomorrow to determine most appropriate next level of care # Suspected complex migraine. Chronic, w/ acute neuro symptoms -MRI w/o CVA -rec starting ASA 81mg daily for CVA ppx tomorrow AM if Hgb stable # L hand paresthesia. Likely 2/2 anaesthesia, monitor Diet. Regular PPx. High risk, SCDs today, lovenox 40 tomorrow AM Code. Full Dispo. ADD uncertain, pending surgical outcome of above. Subjective: tingling in left hand Objective: Vital Signs Temp Pulse Resp BP Pulse Ox 35.9 C L 81 16 111/58 L 100 04/20/18 14:50 04/20/18 14:50 04/20/18 14:50 04/20/18 14:50 04/20/18 14:50 Laboratory Results 04/20/18 05:20 04/20/18 05:20 04/19/18 04/20/18 04/21/18 05:59 05:59 05:59 Intake Total 120 1850 1800 Output Total 400 550 100 Balance -280 1300 1700 PT 13.5 SEC (12.0-15.0) 04/18/18 14:52 INR 1.01 (0.83-1.16) 04/18/18 14:52 - Physical Exam Constitutional: no apparent distress, appears nourished, not in pain, No uncomfortable Ears, Nose, Mouth, Throat: hard of hearing Cardiovascular: regular rate and rhythym, no murmur, rub, or gallop, No edema Respiratory: no respiratory distress, no rales or rhonchi, clear to auscultation Gastrointestinal: normoactive bowel sounds, soft, non-tender abdomen, no palpable masses Neurologic: AAOx3, No sensation intact bilaterally (paresthesias in L hand), No weakness (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
[2018-04-20] MEDS: OXYCODONE/APAP 5/325 TAB PO PRN (19:04)
[2018-04-21] MEDS: ceFAZolin 2 GM/DEXTROSE 100 ML IV SCH (00:08)
[2018-04-21] MEDS: OXYCODONE/APAP 5/325 TAB PO PRN ×2 (00:19→17:30)
[2018-04-21] MEDS: KETOROLAC 15 MG/1 ML SDV IVP SCH (05:45)
[2018-04-21] MEDS: SENNOSIDES/DOCUSATE SODIUM TAB PO SCH ×2 (08:54→21:35)
--- NOTE | 2018-04-21 09:53 | HOSPPROG ---
Hospitalist Progress Note Assessment/Plan: Patient is a73 yo M w hx of expressive aphasia w migraines p/w traumatic fall resulting in L humerus fracture. Today is my first encounter w the patient, chart # Fall. Likely 2/2 complex migraine and neuro sequelae, s/p trauma evaluation -no abnl events on telemetry had been seen, tele dc # Left Humerus fracture dislocation -s/p ORIF on 04/20 -has some associated axillary nerve palsy # Suspected complex migraine. Chronic, w/ acute neuro symptoms -MRI is negative for a CVA -rec starting ASA 81mg daily for CVA prevention -will get ok with orthopedics to start # L hand paresthesia. Likely 2/2 anaesthesia #DVT prophylaxis: LMWH initiated today #Plan: reviewed therapy notes and recommendation is to go to SNF Subjective: Sukhi said his left hand feels numb, he is able to feel my touch. Objective: Vital Signs Temp Pulse Resp BP Pulse Ox 36.6 C 78 16 100/53 L 97 04/21/18 07:42 04/21/18 07:42 04/21/18 07:42 04/21/18 09:07 04/21/18 07:42 Laboratory Results 04/20/18 05:20 04/20/18 05:20 04/20/18 04/21/18 04/22/18 05:59 05:59 05:59 Intake Total 1850 2450 Output Total 550 875 Balance 1300 1575 PT 13.5 SEC (12.0-15.0) 04/18/18 14:52 INR 1.01 (0.83-1.16) 04/18/18 14:52 - Physical Exam Constitutional: no apparent distress, uncomfortable Eyes: PERRL Ears, Nose, Mouth, Throat: hearing normal Cardiovascular: regular rate and rhythym Respiratory: no respiratory distress Skin: warm, other (left arm in sling, good cms to left hand, fingers, has good sensation) Neurologic: AAOx3 Psychiatric: interacting appropriately ICD10 Worksheet Patient Problems: Problems Problem Status Onset Aphasia Acute Fracture of humeral head, left, closed Acute
[2018-04-21] MEDS: ENOXAPARIN 40 MG/0.4 ML SYR SC SCH (13:12)
--- NOTE | 2018-04-21 15:03 | SOAPPROG ---
SOAP Progress Note Assessment/Plan: Assessment: 73 yo male, s/p fall, pod #3 left shoulder fracture dislocation s/p orif by dr. 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 he reports his sensation over his left shoulder is about the same, no significant changes, but he notes improvment with regards to sensation in his left hand since seeing dr. swan, still no sensation in his thumb/index/middle, but its improving in his ring and pinky is normal. denies any falls/injuries, denies fevers/chills, denies cp/sob Objective: LUE: dressings c/d/i, no surrounding erythema or signs of discharge or signs of infection, normal anterior delt sensation infront of the dressing, no reported sensation over mid/post deltoid, no shoulder rom assessed, intact axillary with 20 deg wrist extension and 20 deg wrist flexion, grossly nvid in pinky, decreased but reported sensation in ring, no reported sensation to palpation of middle index or thumb. brisk cap refill Vital Signs Temp Pulse Resp BP Pulse Ox 36.9 C 87 14 108/44 L 97 04/21/18 12:00 04/21/18 12:00 04/21/18 12:00 04/21/18 12:00 04/21/18 12:00 Laboratory Results 04/21/18 Unknown 04/20/18 05:20 04/20/18 04/21/18 04/22/18 05:59 05:59 05:59 Intake Total 1850 2450 Output Total 550 875 Balance 1300 1575 PT 13.5 SEC (12.0-15.0) 04/18/18 14:52 INR 1.01 (0.83-1.16) 04/18/18 14:52 - Pending Discharge Pending Discharge Within 24 Hours: No ICD10 Worksheet Patient Problems: Problems Problem Status Onset Aphasia Acute Fracture of humeral head, left, closed Acute
[2018-04-22] MEDS: ENOXAPARIN 40 MG/0.4 ML SYR SC SCH (08:10)
[2018-04-22] MEDS: SENNOSIDES/DOCUSATE SODIUM TAB PO SCH ×2 (08:10→21:03)
--- NOTE | 2018-04-22 10:46 | ASMTCMCOM ---
CM Note CM Note Notes: Spoke with patient about PT's recommendations for rehab. Patient does not have a preference expcept he would like a SNF either in [place] or close to his home in [place]. Several referrals were made. Jaelyn gonsales [facility] on [address] ([phone]) responded and said they can accept patient and they do not need a PASRR. We will review all acceptances with patient to see what his first choice is. CM will follow. Date Signed: 04/22/2018 10:45 AM Electronically Signed By:Staci Duron LCSW
[2018-04-22] MEDS: ACETAMINOPHEN 500 MG TAB PO SCH ×3 (11:22→21:03)
--- NOTE | 2018-04-22 12:42 | SOAPPROG ---
SOAP Progress Note Assessment/Plan: Assessment: 73 yo male, s/p fall, pod #3 left shoulder fracture dislocation s/p orif by dr. 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 he denies any falls/injuries, denies cp/sob, denies n/v, voiding and moving his bowels Objective: LUE: dressings c/d/i, no erythema/edema/ecchymosis or signs of infection or discharge, normal anterior delt sensation in front of the dressing, mild pressure/decreased sensation reported over post deltoid, still no sensation mid delt, no shoulder rom assessed, intact axillary with 25 deg wrist extension and 25 deg wrist flexion, grossly nvid in pinky, increased/improved sensation in ring both dorsal/volar, mild pressure sensation in middle finger, no reported sensation to palpation of index or thumb. brisk cap refill, patient visualized making a fist and straightening all 5 digits Vital Signs Temp Pulse Resp BP Pulse Ox 36.6 C 89 17 107/58 L 96 04/22/18 07:45 04/22/18 07:45 04/22/18 07:45 04/22/18 07:45 04/22/18 07:45 Laboratory Results 04/21/18 Unknown 04/20/18 05:20 04/21/18 04/22/18 04/23/18 05:59 05:59 05:59 Intake Total 2450 300 500 Output Total 875 275 Balance 1575 300 225 PT 13.5 SEC (12.0-15.0) 04/18/18 14:52 INR 1.01 (0.83-1.16) 04/18/18 14:52 ICD10 Worksheet Patient Problems: Problems Problem Status Onset Aphasia Acute Fracture of humeral head, left, closed Acute
--- NOTE | 2018-04-22 14:15 | HOSPPROG ---
Hospitalist Progress Note Assessment/Plan: Patient is a73 yo M w hx of expressive aphasia w migraines p/w traumatic fall resulting in L humerus fracture. # Fall. Likely 2/2 complex migraine and neuro sequelae, s/p trauma evaluation -no abnl events on telemetry had been seen, tele dc # Left Humerus fracture dislocation -s/p ORIF on 04/20 -will get a 3 view x ray today for f/u # Suspected complex migraine. Chronic, w/ acute neuro symptoms -MRI is negative for a CVA -rec starting ASA 81mg daily for CVA prevention -will get ok with orthopedics to start # L hand paresthesia -reviewed w Dr Dunn, could take upto 3 months to improve - likely from axillary nerve palsy #DVT prophylaxis: LMWH initiated today #Plan: SNF soon Subjective: Sukhi said his left hand is numb and feels uncomfortable. Objective: Vital Signs Temp Pulse Resp BP Pulse Ox 36.6 C 89 17 107/58 L 96 04/22/18 07:45 04/22/18 07:45 04/22/18 07:45 04/22/18 07:45 04/22/18 07:45 Laboratory Results 04/21/18 Unknown 04/20/18 05:20 04/21/18 04/22/18 04/23/18 05:59 05:59 05:59 Intake Total 2450 300 500 Output Total 875 275 Balance 1575 300 225 PT 13.5 SEC (12.0-15.0) 04/18/18 14:52 INR 1.01 (0.83-1.16) 04/18/18 14:52 - Physical Exam Constitutional: appears nourished, uncomfortable Eyes: PERRL Ears, Nose, Mouth, Throat: hearing normal Respiratory: no respiratory distress Skin: warm Musculoskeletal: generalized weakness (left hand, can slightly wiggle a few fingers, but has difficulty with this) Neurologic: AAOx3 Psychiatric: interacting appropriately ICD10 Worksheet Patient Problems: Problems Problem Status Onset Aphasia Acute Fracture of humeral head, left, closed Acute
--- NOTE | 2018-04-22 17:05 | ASMTCMCOM ---
CM Note CM Note Notes: Za from [facility] called to say they have accepted patient. Za's number is [phone] and she would like to know patient's decision to save a bed for him. CM to follow up with patient tomorrow and see what patient's first choice is out of the accepting facilities. CM to follow. Date Signed: 04/22/2018 05:05 PM Electronically Signed By:Staci Duron LCSW
[2018-04-23 07:43] VITALS: BP 134/71
--- NOTE | 2018-04-23 09:00 | HOSPPROG ---
Hospitalist Progress Note Assessment/Plan: Patient is a73 yo M w hx of expressive aphasia w migraines p/w traumatic fall resulting in L humerus fracture. # Fall. Likely 2/2 complex migraine and neuro sequelae, s/p trauma evaluation -no abnl events on telemetry had been seen, tele dc # Left Humerus fracture dislocation -s/p ORIF on 04/20 -will get a 3 view x ray today for f/u # Suspected complex migraine. Chronic, w/ acute neuro symptoms -MRI is negative for a CVA -rec starting ASA 81mg daily for CVA prevention -will get ok with orthopedics to start # L hand paresthesia -reviewed w Dr Dunn, could take upto 3 months to improve - likely from axillary nerve palsy #DVT prophylaxis: LMWH initiated today #Plan: SNF today Subjective: Sukhi says his hand is numb. Objective: Vital Signs Temp Pulse Resp BP Pulse Ox 36.8 C 97 17 134/71 H 94 04/23/18 07:42 04/23/18 07:42 04/23/18 07:42 04/23/18 07:42 04/23/18 07:42 Laboratory Results 04/21/18 Unknown 04/20/18 05:20 04/22/18 04/23/18 04/24/18 05:59 05:59 05:59 Intake Total 300 800 Output Total 275 Balance 300 525 PT 13.5 SEC (12.0-15.0) 04/18/18 14:52 INR 1.01 (0.83-1.16) 04/18/18 14:52 - Physical Exam Constitutional: uncomfortable Eyes: PERRL Ears, Nose, Mouth, Throat: hearing normal Cardiovascular: regular rate and rhythym Respiratory: no respiratory distress Skin: warm Musculoskeletal: other (fingers warm, good cms on left hand; has sensation) Psychiatric: interacting appropriately ICD10 Worksheet Patient Problems: Problems Problem Status Onset Aphasia Acute Fracture of humeral head, left, closed Acute
--- NOTE | 2018-04-23 09:08 | SOAPPROG ---
SOAP Progress Note Assessment/Plan: Assessment: Plan: Subjective: interval xrays look good. sling elbow and wrist ROM ok no shoulder ROm just yet fu [facility] in one week for xrays Objective: Vital Signs Temp Pulse Resp BP Pulse Ox 36.8 C 97 17 134/71 H 94 04/23/18 07:42 04/23/18 07:42 04/23/18 07:42 04/23/18 07:42 04/23/18 07:42 Laboratory Results 04/21/18 Unknown 04/20/18 05:20 04/22/18 04/23/18 04/24/18 05:59 05:59 05:59 Intake Total 300 800 Output Total 275 Balance 300 525 PT 13.5 SEC (12.0-15.0) 04/18/18 14:52 INR 1.01 (0.83-1.16) 04/18/18 14:52 ICD10 Worksheet Patient Problems: Problems Problem Status Onset Aphasia Acute Fracture of humeral head, left, closed Acute
--- NOTE | 2018-04-23 09:09 | PDIAF ---
- Diagnosis Diagnosis: L humerus fx dislocation s/p repair, complex migraines Code Status: Full Code - Medication Management Discharge Medications: Medications to Continue on Transfer Acetaminophen [Tylenol ES 500 mg (*)] 1,000 mg PO TID tab 04/23/18 [Last Taken Unknown] Aspirin [Aspirin 81mg (*)] 81 mg PO DAILY #60 tab 04/23/18 [Last Taken Unknown] Enoxaparin [Lovenox 40 MG (*)] 40 mg SC DAILY syr 04/23/18 [Last Taken Unknown] Polyethylene Glycol 3350 [Miralax 17 gm (*)] 17 gm PO DAILY PRN pkt 04/23/18 [ Last Taken Unknown] Sennosides/Docusate Sodium [Senokot-S] 1 - 2 tab PO BID tab 04/23/18 [Last Taken Unknown] Discharge Medications: Refer to the Discharge Home Medication list for PRN reason. - Orders Services needed: Physical Therapy, Occupational Therapy Diet Recommendation: no restrictions on diet Diet Texture: Regular Texture Diet Additional Instructions: Per Orthopedics (Dr. Dunn): f/u with Dr. Dunn 7-10 days from date of surgery to shoulder NO Range of Motion to Left Shoulder. 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 continue Lovenox x 7 more days or can dc sooner if patient is more mobile asa is a new medication for him - Follow Up Care Current Providers and Referrals: Patient,NotPresent [Primary Care Provider] - As per Instructions Meghan Dunn MD [Medical Doctor] -
[2018-04-23] MEDS: ENOXAPARIN 40 MG/0.4 ML SYR SC SCH (09:18)
[2018-04-23] MEDS: SENNOSIDES/DOCUSATE SODIUM TAB PO SCH (09:19)
[2018-04-23] MEDS: ACETAMINOPHEN 500 MG TAB PO SCH (09:25)
--- NOTE | 2018-04-23 09:28 | GDS ---
DISCHARGE DIAGNOSES: 1. Gait instability with fall secondary to complex migraine and neuro sequela. 2. Left humerus fracture, dislocation status post open reduction internal fixation. 3. Suspected complex migraine. 4. Left hand paresthesia. CONSULTATIONS: 1. Dr. Douglas Ewing. 2. Dr. Miky Whelan. 3. Dr. Jamison Minaya. HISTORY OF PRESENT ILLNESS: Briefly, the patient is a 73-year-old gentleman who was hiking with a fr iend and fell, subsequently breaking his proximal left humerus. He had a head CT performed, which wa s unremarkable. He had an angio of the head and neck without any acute intravascular thrombosis or d issection. In the emergency room, he was noted to have aphasia and subsequently, a stroke alert was called and seen by telemedicine, who did not recommend tPA. He is seen and evaluated by Neurology an d noted that he may be aphasic based on his migraine headaches. He had an MRI that did not show any type of acute findings. Throughout his stay he improved. He had surgery with Dr. Dunn. The plan is for him to go to a halfway facility for rehabilitation. HOSPITAL COURSE PER PROBLEM: 1. Fall. This is likely secondary to complex migraine and neuro sequela. 2. Left humerus fracture, dislocation. He is status post ORIF on 04/20. 3. Suspected complex migraine. This is chronic. His MRI is negative for a CVA. He is being starte d on aspirin 81 mg daily for CVA prevention. 4. Left hand paresthesia. I reviewed this with Orthopedics. This should improve in approximately 3 months. This is likely from axillary nerve palsy. DISCHARGE CONDITION: Stable. Blood pressure is 134/71, heart rate 97, respiratory rate is 17, O2 sa ts on room air 94%, temperature is 36.8 Celsius. MEDICATIONS AT DISCHARGE: Please see the EMR. DISCHARGE INSTRUCTIONS: 1. To follow up with Dr. Dunn in 7-10 days. 2. No range of motion left shoulder. He is to be nonweightbearing to the shoulder and full-time sli ng use. 3. Continue Lovenox x7 more days or this can be discontinued if the patient is more mobile. Also, a spirin is a new medication for him. Greater than 30 minutes discharging and coordinating the patient's care. /[id number]/MODL
--- NOTE | 2018-04-23 18:24 | ASMTLACE ---
LACE Length of stay for Answers: 4-6 days current admission Acuity / Level of Answers: Yes Care: Did the patient have an inpatient admission? Comorbidities - select Answers: Other Notes: Migraines all that apply # of Emergency department Answers: 1-2 visits in the last 6 months Score: 9 Date Signed: 04/23/2018 03:40 PM Electronically Signed By:TATIANA Huizar
--- NOTE | 2018-04-23 19:27 | ASMTCMCOM ---
CM Note CM Note Notes: Pt medically stable for d/c to [facility]. Orders sent. RN Michelle called report. Pt dghtr Radha updated. Za with [facility] scheduled wc transport. Date Signed: 04/23/2018 03:43 PM Electronically Signed By:TATIANA Huizar
--- NOTE | 2018-04-23 19:28 | ASDISCHSUM ---
Discharge Information Plan Status:SNF Medically Cleared to Leave: Discharge Date:04/23/2018 02:05 PM D/C Disposition:Alf Facility ADT D/C Disposition:Alf Facility Projected Discharge Date:04/24/2018 11:00 AM Transportation at D/C:Wheelchair Van Discharge Delay Reason: Follow-Up Date:04/24/2018 11:00 AM Discharge Slot: Final Diagnosis: Placement Information Referral Type:*Custodial/SNF Referral ID:[id number] Provider Name:[facility] Address 1:[address] Address 2: City:[place] Selection Factors: State:[place] Patient Contact Information Contact Name:TESSY Relationship:Friend Address:[address] KARIN) [phone] Work Phone: City: [facility] Phone: [facility]/Zip Code:[place] Email: Financial Information Financial Class:Medicare Advantage Plans Primary Plan Desc:[facility] ADVANTAGE PLANS Primary Plan Number:[id number] Secondary Plan Desc: Secondary Plan Number: Assessment Information [facility] CM Progress Note CM Note CM Note Notes: Pt admitted to hospital after a fall while hiking. He was with a friend when fell suddenly. 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 Per H&P, pt lives alone but independent in ADLs, has a brother and a son. PT/OT ordered, CM w/f and assess for dc plan. DC Plan: TBD Date Signed: 04/19/2018 09:48 AM Electronically Signed By:Jayleen Candelario RN [facility]ES[facility] Length of stay for Answers: 4-6 days current admission Acuity / Level of Answers: Yes Care: Did the patient have an inpatient admission? Comorbidities - select Answers: Other Notes: Migraines all that apply # of Emergency department Answers: 1-2 visits in the last 6 months Score: 9 Date Signed: 04/23/2018 03:40 PM Electronically Signed By:TATIANA Huizar [facility] CM Progress Note CM Note CM Note Notes: Spoke with patient about PT's recommendations for rehab. Patient does not have a preference expcept he would like a SNF either in [place] or close to his home in [place]. Several referrals were made. Jaelyn from [facility] [address] ([phone]) responded and said they can accept patient and they do not need a PASRR. We will review all acceptances with patient to see what his first choice is. CM will follow. Date Signed: 04/22/2018 10:45 AM Electronically Signed By:Staci Duron LCSW [facility] CM Progress Note CM Note CM Note Notes: Za from [facility] called to say they have accepted patient. Za's number is [phone] and she would like to know patient's decision to save a bed for him. CM to follow up with patient tomorrow and see what patient's first choice is out of the accepting facilities. CM to follow. Date Signed: 04/22/2018 05:05 PM Electronically Signed By:Staci Duron LCSW [facility] CM Progress Note CM Note CM Note Notes: Pt medically stable for d/c to [facility]. Orders sent. CORINNE Martinez called report. Pt dghtr Radha updated. Za silverio CAN scheduled wc transport. Date Signed: 04/23/2018 03:43 PM Electronically Signed By:TATIANA Huizar Intervention Information Intervention Type:*IM-Signed Date of Service:04/23/2018 10:35 AM Patient Type:Inpatient Staff Member:Janay Grant Hours: Discipline: Severity: Comment:
== END 2018-04-23 14:05 | DRG 493 ==
LOC: F2N 16:43 → F3N 04-20 09:49
PROVIDERS: ADMIT Surgery; ATTEND Surgery
DX: S42.292A Other displaced fracture of upper end of left humerus, initial encounter for closed fracture (principal); R47.01 Aphasia; R33.9 Retention of urine, unspecified; W18.39XA Other fall on same level, initial encounter; Y93.01 Activity, walking, marching and hiking; R26.9 Unspecified abnormalities of gait and mobility; G58.9 Mononeuropathy, unspecified; G43.109 Migraine with aura, not intractable, without status migrainosus
CPT/HCPCS: 82435-PO; 82565-PO; 82947-PO; 84132-PO; 84295-PO; 84484-PO; 84520-PO; 85014-PO; 92507-GN; 92523-GN; 97116-GP; 97161-GP; 97166-GO; 97530-GO; 97530-GP; 97535-GO; A4565; C1713; C1762; C1769; G8978-GP-CK; G8979-GP-CI; G8987-GO-CL; G8988-GO-CJ; G9168-GN-CK; G9169-GN-CJ; J0330; J0690; J1100; J1170; J1650; J1885; J2405; J2704; J2795; J3010; Q9967